=== PATIENT | female | born 1955 | race Caucasian/White ===

== ENCOUNTER 2025-07-27 06:21 | Day surgery (SDC) | payer MEDICARE, OTHER, SELFPAY | END 2025-07-27 10:58 | disposition home or self-care (01) | LOC: GI 06:21 | PROVIDERS: ATTENDING PHYSICIAN Specialist | DX: Z12.11 Encounter for screening for malignant neoplasm of colon (principal); D12.2 Benign neoplasm of ascending colon | CPT/HCPCS: 45380; 88305; J1610 ==